=== PATIENT | male | born 1965 | race African-American/Black ===

== ENCOUNTER 2016-07-17 12:05 | Emergency (ER) | payer SELFPAY ==
[~2016-07-17] VITALS: Ht 175.3 cm; Wt 83.9 kg
[2016-07-17] MEDS ORDERED: DILANTIN100 MG ORAL (12:21)
[2016-07-17] MEDS ORDERED: Ketorolac 30mg Inj IM ONE (12:30)
[2016-07-17] MEDS ORDERED: ROBAXIN-750750 MG PO (12:47)
[2016-07-17] MEDS ORDERED: IBUPROFEN600 MG ORAL (12:47)
[2016-07-17 13:15] VITALS: BP 142/97
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
== END 2016-07-17 13:17 | disposition home or self-care (01) ==
LOC: EMR 12:29
DX: S16.1XXA Strain of muscle, fascia and tendon at neck level, initial encounter (principal); V43.52XA Car driver injured in collision with other type car in traffic accident, initial encounter; Y93.9 Activity, unspecified; Y92.410 Unspecified street and highway as the place of occurrence of the external cause
CPT/HCPCS: 96372; 99284; J1885